=== PATIENT | female | born 1945 | race Caucasian/White ===

== ENCOUNTER 2016-07-23 17:50 | Emergency (ER) | payer MEDICARE, MEDICAID ==
--- NOTE | 2016-07-27 13:23 | ER ---
ADMIT: 07/23/2016 RM/LOC: ER MR#: [id number] [address] [id number] ANEUDY GRANADO [address] [place] [address] Emergency Room Report SEX: F AGE: 71 : 1945 DATE: 07/23/2016 ADDENDUM: This patient comes into the ER because she lives at [facility]. She had a lift chair that she hit the button to go up probably meant to go not all the way up and she slid out of the chair. She has pain in her left shoulder and I think she may have hit her head because she has a small reddened abrasion-type area on the left side of her forehead. On physical exam, she has no complaints except for some tenderness in her shoulder. CT of her head was normal. An x-ray of her left shoulder were negative for any fractures. DIAGNOSES: 1. Left shoulder pain. 2. Left forehead abrasion. 3. Anticoagulation therapy. Please see my T sheet. TRISHA Voss / Rigoberto Noel MD / shira JOB #: [id number] CC: Fernando Cobian MD, Attending Physician Cassidy Perea MD, Family Physician
== END 2016-07-23 19:40 | disposition home or self-care (01) ==
LOC: ER 17:50
DX: S00.81XA Abrasion of other part of head, initial encounter (principal); M25.512 Pain in left shoulder; D68.318 Other hemorrhagic disorder due to intrinsic circulating anticoagulants, antibodies, or inhibitors; Z79.82 Long term (current) use of aspirin; X50.9XXA Other and unspecified overexertion or strenuous movements or postures, initial encounter